=== PATIENT | female | born 2000 | race Two or more races ===

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

== ENCOUNTER 2019-11-18 04:02 | Inpatient (IN) | payer MEDICAID ==
[2019-11-18] VITALS (14 sets, daily range): BP systolic 94–118; BP diastolic 51–84
[~2019-11-18] VITALS: Ht 154.9 cm; Wt 60.8 kg
[2019-11-18] MEDS ORDERED: LACTATED RINGER'S 1,000 ML IV SCH (04:22)
[2019-11-18] MEDS ORDERED: TERBUTALINE SULFATE 1 MG/ML 1ML VIAL SC ONE (04:52)
[2019-11-18 04:54] LABS: Basophils # (auto) 0 10 ^3/uL (0-0.2); Basophils % (auto) 0.6 % (0.0-2.0); Eosinophils # (auto) 0 10 ^3/uL (0-0.8); Eosinophils % (auto) 0.3 % (0.0-7.0); Hemoglobin 9.9 g/dL (12.2-16.2); Lymphocytes % (auto) 27.7 % (10.0-50.0); Mean Corpuscular Hemoglobin 27.8 pg (28.0-32.0); Mean Corpuscular Hgb Conc. 32.9 g/dL (32.0-36.0); Mean Corpuscular Volume 84.4 fL (80.0-100.0); Monocytes # (auto) 0.4 10 ^3/uL (0-1.3); Monocytes % (auto) 5.9 % (0.0-12.0); Neutrophils # (auto) 4.8 10 ^3/uL (1.6-8.6); Neutrophils % (auto) 65.5 % (37.0-80.0); Platelet Count (auto) 231 10^3/uL (140-450); Red Blood Cells 3.55 10^6/uL (4.0-5.20); Red Cell Distribution Width 15.1 % (11.8-14.3); White Blood Cell 7.4 10^3/uL (4.4-10.8)
[2019-11-18] MEDS: TERBUTALINE SULFATE 1 MG/ML 1ML VIAL SC ONE ×2 (04:57→05:00)
[2019-11-18 05:07] LABS: Urine Bacteria FEW /hpf (None Seen); Urine Blood Negative /uL (Negative); Urine Mucus FEW (None Seen); Urine Specific Gravity 1.017 (1.001-1.035); Urine WBC 6 /hpf (0 - 5)
[2019-11-18 05:09] LABS: INR 0.93 (0.9-1.15); Partial Thromboplastin Time 26.1 sec (23.64-32.05)
[2019-11-18 05:11] LABS: Albumin 2.8 g/dL (3.4-5.0); Calcium 8.7 mg/dL (8.5-10.1); Potassium 3.7 mmol/L (3.5-5.1)
[2019-11-18 05:15] LABS: BUN/Creatinine Ratio 14.1; Bilirubin, Total 0.4 mg/dL (0.2-1.0)
[2019-11-18] MEDS ORDERED: TETRACAINE 1% INJ 2 ML VIAL IJ ONE ×2 (06:59→09:06)
[2019-11-18] MEDS ORDERED: TERBUTALINE SULFATE 1 MG/ML 1ML VIAL SC SCH (07:00)
[2019-11-18] MEDS ORDERED: fentaNYL CITRATE 100 MCG/2 ML VL ONE (07:03)
[2019-11-18] MEDS ORDERED: MORPHINE SULF(PF) 0.5MG/ML 10ML VIAL ONE (07:03)
[2019-11-18] MEDS ORDERED: oxyTOCIN 10 UNIT/ML 10ML VIAL ONE (07:04)
[2019-11-18] MEDS ORDERED: ePHEDrine SULFATE 50 MG/ML AMP ONE (07:04)
[2019-11-18] MEDS ORDERED: ONDANSETRON HCL 4 MG/2 ML VIAL ONE (07:04)
[2019-11-18] MEDS ORDERED: GLYCOPYRROLATE 0.2 MG/ML 1ML VIAL ONE (07:04)
[2019-11-18] MEDS ORDERED: methylPREDNISolone ACETATE 80 MG/ML VL ONE (07:17)
[2019-11-18] MEDS ORDERED: BUPIVACAINE 0.25% INJ 50ML VIAL ONE (07:17)
[2019-11-18] MEDS ORDERED: FAMOTIDINE (10MG/ML) 2ML VL IV ONE (09:14)
[2019-11-18] MEDS ORDERED: ESMOLOL HCL 10 ML IV ONE (10:16)
[2019-11-18] MEDS ORDERED: NALOXONE HCL 0.4 MG/ML VIAL IV PRN (10:45)
[2019-11-18] MEDS ORDERED: HYDROmorphone HCL 2 MG/ML VL IV PRN (10:45)
[2019-11-18] MEDS ORDERED: ONDANSETRON HCL 4 MG/2 ML VIAL IV PRN ×3 (10:45)
[2019-11-18] MEDS ORDERED: DexAMETHasone SOD PHOS 10MG/1ML VIAL INJ IV PRN (10:45)
[2019-11-18] MEDS ORDERED: NALBUPHINE HCL 10 MG/1ml INJECTION SUBCUT ONE (10:45)
[2019-11-18] MEDS ORDERED: ceFAZolin 1GM/50ML 50 ML IV SCH (10:45)
[2019-11-18] MEDS ORDERED: diphenhdrAMINE HCL 50 MG/1 ML VL IV PRN (10:45)
[2019-11-18] MEDS: KETOROLAC TROMETH 30 MG/ML 1ML VIAL IV SCH ×2 (12:50→17:53)
[2019-11-18] MEDS: LACTATED RINGER'S 1,000 ML IV SCH (15:50)
[2019-11-18] MEDS: HYDROmorphone HCL 2 MG/ML VL IV PRN ×2 (15:50→22:48)
[2019-11-18] MEDS: ceFAZolin 1GM/50ML 50 ML IV SCH (15:50)
[2019-11-19] VITALS (9 sets, daily range): BP systolic 105–123; BP diastolic 58–83
[2019-11-19] MEDS: ceFAZolin 1GM/50ML 50 ML IV SCH ×2 (01:13→08:32)
[2019-11-19] MEDS: KETOROLAC TROMETH 30 MG/ML 1ML VIAL IV SCH ×2 (01:14→06:22)
[2019-11-19 04:10] LABS: RPR Non Reactive (Non Reactive)
[2019-11-19 06:40] LABS: Basophils # (auto) 0 10 ^3/uL (0-0.2); Eosinophils # (auto) 0 10 ^3/uL (0-0.8); Hemoglobin 7.7 g/dL (12.2-16.2); Monocytes # (auto) 0.5 10 ^3/uL (0-1.3)
[2019-11-19 06:41] LABS: Basophils % (auto) 0.2 % (0.0-2.0); Eosinophils % (auto) 0.2 % (0.0-7.0); Hematocrit 22.7 % (36.0-46.0); Lymphocytes # (auto) 1.8 10 ^3/uL (0.4-5.4); Lymphocytes % (auto) 19.4 % (10.0-50.0); Mean Corpuscular Hemoglobin 28.2 pg (28.0-32.0); Mean Corpuscular Hgb Conc. 33.9 g/dL (32.0-36.0); Mean Corpuscular Volume 83.3 fL (80.0-100.0); Monocytes % (auto) 5.4 % (0.0-12.0); Neutrophils # (auto) 6.9 10 ^3/uL (1.6-8.6); Neutrophils % (auto) 74.8 % (37.0-80.0); Platelet Count (auto) 179 10^3/uL (140-450); Red Blood Cells 2.73 10^6/uL (4.0-5.20); Red Cell Distribution Width 15.1 % (11.8-14.3); White Blood Cell 9.2 10^3/uL (4.4-10.8)
[2019-11-19] MEDS ORDERED: HYDROcodone-ACET 5/325MG TAB PO PRN ×2 (07:30)
[2019-11-19] MEDS: FERROUS SULFATE 325 MG TAB PO SCH ×3 (08:28→17:37)
[2019-11-19] MEDS: DOCUSATE SOD 100 MG CAP PO SCH ×2 (09:39→21:46)
[2019-11-19] MEDS: LACTATED RINGER'S 1,000 ML IV SCH (09:40)
[2019-11-19] MEDS: IBUPROFEN 800 MG TAB PO PRN ×2 (09:42→17:38)
[2019-11-19] MEDS ORDERED: DOCUSATE SOD 100 MG CAP PO PRN (10:00)
[2019-11-19] MEDS ORDERED: DOCUSATE CALCIUM 240 MG CAP PO PRN (10:00)
[2019-11-19] MEDS: SIMETHICONE 80 MG CHEWABLE TABLET PO SCH ×3 (11:40→21:45)
[2019-11-19] MEDS ORDERED: LACTATED RINGER'S 1,000 ML IV SCH (14:00)
[2019-11-19] MEDS ORDERED: BISACODYL 10 MG RECT SUPP PR ONE (22:31)
[2019-11-20 03:00] VITALS: BP 103/60
[2019-11-20] MEDS: IBUPROFEN 800 MG TAB PO PRN (05:31)
[2019-11-20] MEDS: SIMETHICONE 80 MG CHEWABLE TABLET PO SCH (05:32)
[2019-11-20 06:50] VITALS: BP_SYST 103; BP_SYST 115; BP_DIAS 60; BP_DIAS 79
[2019-11-20] MEDS ORDERED: FERR27TA2 PO (16:51)
== END 2019-11-20 10:25 | disposition home or self-care (01) | DRG 540 ==
LOC: LDRP 04:02
PROVIDERS: ADMIT Specialist; ATTEND Specialist
PROC: 10D00Z1 Extraction of Products of Conception, Low, Open Approach (ICD-10-PCS; principal; 2019-11-18 09:26)
DX: O34.211 Maternal care for low transverse scar from previous cesarean delivery (principal); Z37.0 Single live birth; Z3A.39 39 weeks gestation of pregnancy
CPT/HCPCS: 36415; 80053; 81001; 84112; 85025; 85610; 85730; 86592; 86850; 86900; 86901; 96374; G0378; J0690; J1885; J2405; J2590; J3490